=== PATIENT | male | born 1995 | race Caucasian/White ===

== ENCOUNTER 2017-03-30 15:09 | Emergency (ER) | payer OTHER ==
[~2017-03-30] VITALS: Ht 177.8 cm; Wt 91.0 kg
[2017-03-30 15:12] VITALS: Ht 177.8 cm; Wt 91.0 kg
[2017-03-30] MEDS ORDERED: CEPH500C PO (15:27)
[2017-03-30 15:52] VITALS: BP 129/86; PULSE 79; TEMP 36.8; O2SAT 97
--- NOTE | 2017-03-30 21:32 | EMERGENCY ROOM VISIT NOTE ---
ED Visit Note First contact with patient: 15:15 CHIEF COMPLAINT: Finger laceration HISTORY OF PRESENT ILLNESS: This 21-year-old male patient presents to the emergency department after cutting the right first finger last night, roughly 16 hours ago. The bleeding has stopped. Denies weakness or numbness of the finger. The patient has full range of motion of the fingers. The patient rates the pain as dull and 2/10. The patient denies any other injuries. The patient' s tetanus shot is reportedly up to date. REVIEW OF SYSTEMS: A 6 system review of systems was completed with positives and pertinent negatives listed in the HPI. ALLERGIES: No known allergies MEDICATIONS: No chronic medication PMH: Otherwise healthy SOCIAL HISTORY: Student who lives local PHYSICAL EXAM: Vital Signs: Reviewed Nurse's notes, vital signs stable. GENERAL : White male, in no acute distress, well developed, well nourished. SKIN: There is a 2.0 cm long laceration on the medial aspect of the right first finger. The edges do not significantly gape. There is no foreign material in the wound and it looks clean. There is no bleeding. No deep structures such as tendons, bones, or significant blood vessels are seen in the base of the wound. Extension and flexion of the finger is full and strong. Full range of motion of the wrist and other fingers. Capillary refill less than 2 seconds. Normal sensation to light and sharp touch. EMERGENCY DEPARTMENT COURSE: Physical exam and history were performed. Nursing notes and EMR were reviewed. The patient appears to have cut himself greater than 12 hours ago. He does have a small laceration to his right thumb, that may have initially required repair. I'm concerned as the patient has delayed care for several hours, and I do not feel that formal closure is appropriate at this time. The wound was cleansed and dressed with bacitracin dressing. He was given a metal splints to help prevent bending of the finger. The patient will need a short course of antibiotics to help prevent infection, and was given Keflex. He is to follow with his primary care physician further care and management. Current/Historical Medications Scheduled Cephalexin Monohydrate (Keflex), 500 MG PO TID Allergies Coded Allergies: No Known Allergies (Unverified , 03/30/17) Vital Signs Date Time Temp Pulse Resp B/P (MAP) Pulse Ox O2 Delivery O2 Flow Rate FiO2 03/30/17 15:52 36.8 79 16 129/86 97 03/30/17 15:12 36.8 79 16 129/86 97 Departure Information Impression Primary Impression: Laceration of thumb with delay in treatment Dispostion Home / Self-Care Condition GOOD Prescriptions Cephalexin Monohydrate (Keflex) 500 Mg Cap 500 MG PO TID for 5 Days, #15 CAP Prov: Phu Stallworth PA-C 03/30/17 Referrals No Doctor, Assigned [facility] (PCP) Forms HOME CARE DOCUMENTATION FORM, IMPORTANT VISIT INFORMATION Patient Instructions [facility] Additional Instructions You were seen and evaluated today on an emergency basis only. This is not a substitute for, or an effort to provide, complete comprehensive medical care. It is not possible to recognize and treat all injuries or illnesses in a single emergency department visit. For this reason it is recommended that you followup with [facility] with any ongoing or persisting symptoms. Apply a bacitracin dressing twice daily for 7 days. Wear your splint to prevent bending of the joint. Cephalexin(Keflex) 500mg: Take one pill 3 times daily for 5 days to prevent skin infection. All antibiotics can cause diarrhea. If this occurs and you feel worse or it does not resolve in 1-2 days follow up with your doctor or return to the Emergency Department as this could be signs of serious underlying problems. Any medication can cause an allergic reaction, stop the pills immediately and return to the ER for rash, hives, breathing difficulties, or swelling. You are welcome to return to the emergency department anytime with new, worsening, or concerning symptoms.
== END 2017-03-30 15:45 | disposition home or self-care (01) ==
LOC: C.EDB 15:10 → C.EDD 15:45
DX: S61.011A Laceration without foreign body of right thumb without damage to nail, initial encounter (principal); W25.XXXA Contact with sharp glass, initial encounter; Y92.9 Unspecified place or not applicable